=== PATIENT | female | born 1935 | race Caucasian/White ===

== ENCOUNTER → 2016-07-22 | Outpatient (CLI) | payer MEDICARE, BC ==
--- NOTE | 2016-07-22 17:41 | HKNOTE ---
DATE OF SERVICE: 07/22/2016 MAIN COMPLAINT: Pain in the right knee. HISTORY OF MAIN COMPLAINT: The patient is an 81-year-old female who saw me once 8 years ago complmaris green of pain in her right knee. I gave her a cortisone injection and told she would need a knee rep lacement in the future. She had absolutely no pain in the knee thereafter! She now comes in with r ecurrence of "the same kind of pain." PRESENT COMPLAINTS: The knee does not lock, swell or give way. She does not use a walking aid. Sh e takes an occasional Advil or Aleve for the pain. She also applies Voltaren gel. Note that she chatterjee d back surgery for spinal stenosis in 2012. PHYSICAL EXAMINATION GENERAL: A remarkably fit looking and youthful 81-year-old female. She has an antalgic gait. She walks without a walking aid. RIGHT KNEE: The right knee shows normal alignment. Active and passive extension is 0 degrees. Activ e and passive flexion is 135 degrees. The medial and lateral collateral ligaments and cruciate ligam ents are intact. Fermin test is negative. There is no effusion, tenderness, scarring, or cysts. The patella tracks normally. There is no tenderness on the articular surface of the patella or in the p atellar groove. The Q angle is normal. 4+ crepitus in the knee and on the patella. Tender along th e entire medial joint line. IMAGING: Plain x-rays of the right knee obtained today were reviewed. These show some minimal dege nerative changes affecting mainly the medial compartment with approximately a 50% loss of joint spac e medially. Remarkably, the rest of the knee looks fairly normal. DIAGNOSIS: Degenerative osteoarthritis of the right knee. MANAGEMENT: Under sterile conditions, given an injection of 2 mL of Kenalog and 6 mL of 2% lidocain e into the right knee joint. The patient left free of pain. FOOTNOTE: The remainder of this patient history, past medical history, systems review, medications, etc, please see the written notes in the chart. Dictated By: EDEN HUSSEIN/MICHA Conf#: [id number] DID#: [id number]
--- NOTE | 2016-07-22 18:07 | RADRPT ---
PROCEDURE: Right knee radiographs. CLINICAL INDICATION: Right knee pain. TECHNIQUE: Three views. Weight bearing. Frontal, lateral, and patellar view. COMPARISON: No prior studies are available for comparison. FINDINGS: There is no fracture or dislocation. There is diffuse osteopenia. There are degenerative changes with osteophytes arising from all 3 joint compartment margins. There is no joint space narrowing. There is no lytic or blastic lesion. There is no radiopaque foreign body. IMPRESSION: 1. Diffuse osteopenia. 2. Mild degenerative change of the right knee. RPTAT: QQ .Ethan Sy MD, MD Date Time Electronically viewed and signed by .Ethan Sy MD, MD on 07/22/2016 18:07 .R/
== END | disposition home or self-care (01) ==
LOC: HKI 14:43
DX: M17.11 Unilateral primary osteoarthritis, right knee (principal)
CPT/HCPCS: 20610; 73562; G0463; J3301